=== PATIENT | female | born 1960 | race Caucasian/White ===

== ENCOUNTER → 2016-05-23 | Outpatient (CLI) | payer BC ==
[~2016-05-23] MED LIST: ASPIRIN 81M81 MG/TA2 PO; INVOKAMET PO; MOTRIN 600600 MG/TAB PO; MULTI VITAMINS1 TAB PO; PRINIVIL2.5 MG PO; TYLENOL 8 HR PO; ZOCOR 40MG40 MG PO
== END ==
LOC: SUN.DIA 09:44
DX: E11.65 Type 2 diabetes mellitus with hyperglycemia (principal); Z79.84 Long term (current) use of oral hypoglycemic drugs; Z79.4 Long term (current) use of insulin; Z68.25 Body mass index [BMI] 25.0-25.9, adult; Z71.3 Dietary counseling and surveillance
CPT/HCPCS: G0108

== ENCOUNTER → 2016-07-29 | Outpatient (CLI) | payer BC | LOC: MC.RAD 08:39 | DX: Z12.31 Encounter for screening mammogram for malignant neoplasm of breast (principal) ==

== ENCOUNTER → 2016-08-22 | Outpatient (CLI) | payer BC | LOC: SUN.DIA 08:45 | DX: E11.9 Type 2 diabetes mellitus without complications (principal); Z68.26 Body mass index [BMI] 26.0-26.9, adult; Z71.3 Dietary counseling and surveillance | CPT/HCPCS: G0108 ==

== ENCOUNTER → 2016-12-19 | Outpatient (CLI) | payer BC | LOC: SUN.DIA 13:46 | DX: E11.9 Type 2 diabetes mellitus without complications (principal); Z68.27 Body mass index [BMI] 27.0-27.9, adult; Z71.3 Dietary counseling and surveillance | CPT/HCPCS: G0108 ==

== ENCOUNTER → 2017-06-19 | Outpatient (CLI) | payer BC | LOC: SUN.DIA 14:47 | DX: E11.9 Type 2 diabetes mellitus without complications (principal); Z68.26 Body mass index [BMI] 26.0-26.9, adult; Z71.3 Dietary counseling and surveillance | CPT/HCPCS: G0108 ==

== ENCOUNTER → 2018-01-04 | Outpatient (CLI) | payer BC | LOC: SUN.DIA 12-25 08:18 | DX: E11.9 Type 2 diabetes mellitus without complications (principal) | CPT/HCPCS: G0108 ==

== ENCOUNTER → 2018-07-26 | Outpatient (CLI) | payer BC | LOC: SUN.DIA 12:46 | DX: E11.9 Type 2 diabetes mellitus without complications (principal) | CPT/HCPCS: G0108 ==

== ENCOUNTER → 2019-01-15 | Outpatient (CLI) | payer BC | LOC: DIA.ED 11:56 | DX: E11.9 Type 2 diabetes mellitus without complications (principal) | CPT/HCPCS: G0108 ==

== ENCOUNTER → 2019-07-08 | Outpatient (CLI) | payer BC | LOC: DIA.ED 13:35 | DX: E11.9 Type 2 diabetes mellitus without complications (principal); Z79.84 Long term (current) use of oral hypoglycemic drugs | CPT/HCPCS: G0108 ==

== ENCOUNTER → 2020-01-08 | Outpatient (CLI) | payer BC | LOC: DIA.ED 09:51 | DX: E11.9 Type 2 diabetes mellitus without complications (principal); Z79.84 Long term (current) use of oral hypoglycemic drugs | CPT/HCPCS: G0108 ==

== ENCOUNTER → 2020-07-08 | Outpatient (CLI) | payer BC | LOC: DIA.ED 14:55 | DX: E11.9 Type 2 diabetes mellitus without complications (principal); Z79.84 Long term (current) use of oral hypoglycemic drugs | CPT/HCPCS: G0108 ==

== ENCOUNTER → 2021-07-20 | Outpatient (CLI) | payer BC | LOC: MC.RAD 09:21 | DX: Z12.31 Encounter for screening mammogram for malignant neoplasm of breast (principal) ==

== ENCOUNTER → 2023-10-05 | Outpatient (CLI) | payer BC | LOC: MC.RAD 08:56 | DX: Z12.31 Encounter for screening mammogram for malignant neoplasm of breast (principal) ==